=== PATIENT | female | born 1980 | race Caucasian/White ===

== ENCOUNTER 2025-07-28 23:10 | Emergency (ER) | payer BC ==
[2025-07-29] MEDS ORDERED: Ketorolac Tromethamine 30 MG (1 mL) VIAL ONE (00:29)
[2025-07-29] MEDS ORDERED: Acetaminophen 500 MG TAB ONE (00:29)
[2025-07-29] MEDS ORDERED: Amoxicillin/Potassium Clav 875 MG TAB ONE (00:30)
== END 2025-07-29 00:50 | disposition home or self-care (01) ==
LOC: CSHERS 23:10
DX: K04.7 Periapical abscess without sinus (principal); F17.210 Nicotine dependence, cigarettes, uncomplicated
CPT/HCPCS: 96372; 99282; J1885